=== PATIENT | male | born 1965 | race Caucasian/White ===

== ENCOUNTER 2018-09-15 11:29 | Day surgery (SDC) | payer BC ==
[~2018-09-15] VITALS: Ht 170.2 cm; Wt 82.2 kg
--- NOTE | 2018-09-15 13:23 | NUR ---
09/15/18 1323 Freda Cintron LATE ENTRY PREVIOUS CASE RUNNING LATE. UPDATED PT ON DELAY. PT STATES" HE UNDERSTANDS." PT REPORTS COMFORT AT THIS TIME.
== END 2018-09-15 15:37 | disposition home or self-care (01) ==
LOC: ORSCSDS 11:29
PROVIDERS: Surgery
PROC: 0DJD8ZZ Inspection of Lower Intestinal Tract, Via Natural or Artificial Opening Endoscopic (ICD-10-PCS; principal; 2018-09-15 13:00)
DX: Z12.11 Encounter for screening for malignant neoplasm of colon (principal); Z79.899 Other long term (current) drug therapy
CPT/HCPCS: J2250; J7120